=== PATIENT | female | born 1995 | race African-American/Black ===

== ENCOUNTER 2019-05-11 14:45 | Emergency (ER) | payer OTHER ==
[2019-05-11 15:35] VITALS: BP 111/61; PULSE 60; TEMP 98; BMI 20.9
[2019-05-11] MEDS ORDERED: LACTATED RINGERS SOLUTION 1000 ML INFUS.BAG IV ONE (15:40)
[2019-05-11] MEDS ORDERED: ACETAMINOPHEN 325 MG TABLET (FP) PO ONE (15:41)
--- NOTE | 2019-05-11 15:49 | PDOC ---
History of Present Illness - General Chief Complaint: Lightheaded Stated Complaint: Lightheaded Time Seen by Provider: 05/11/19 14:52 History Source: Patient Exam Limitations: Clinical Condition - History of Present Illness Initial Comments: 05/11/19 15:46 Patient with no significant past medical history present with complaint of sudden onset of lightheadedness and feeling hot while visiting the following Wednesday ED here 30 minutes ago with symptoms is been improving. Patient reported was at the bedside of her family member when she started feeling hot and had a moment of lightheadedness. Reported lightheadedness are improved but still have a mild headache. Denies nausea, vomiting, blurry vision, change in vision, chest pain, palpitation, shortness of breath. Reported LMP 2 weeks ago. Denies urinary frequency, dysuria or any urinary symptoms. Patient denies any other symptoms Is this a multiple visit Asthma Patient?: No Timing/Duration: momentarily Past History - Past Medical History Allergies/Adverse Reactions: Allergies Allergy/AdvReac Type Severity Reaction Status Date / Time No Known Allergies Allergy Verified 05/11/19 15:27 Home Medications: Ambulatory Orders NK [No Known Home Medication] 05/11/19 COPD: No - Psycho Social/Smoking Cessation Hx Smoking History: Never smoked Have you smoked in the past 12 months: No Information on smoking cessation initiated: No Hx Alcohol Use: No Drug/Substance Use Hx: No Review of Systems - Review of Systems Able to Perform ROS?: Yes Is the patient limited Turkish proficient: No Constitutional: No: Chills, Fever, Malaise HEENTM: No: Symptoms Reported, See HPI, Eye Pain, Blurred Vision, Tearing, Recent change in vision, Double Vision, Cataracts, Ear Pain, Ocular Prothesis, Ear Discharge, Nose Pain, Nose Congestion, Tinnitus, Nose Bleeding, Hearing Loss , Throat Pain, Throat Swelling, Mouth Pain, Dental Problems, Difficulty Swallowing, Mouth Swelling, Other Respiratory: No: Symptoms reported, See HPI, Cough, Orthopnea, Shortness of Breath, SOB with Exertion, SOB at Rest, Stridor, Wheezing, Productive cough, Hemoptysis, Other Cardiac (ROS): Yes: Symptoms Reported, See HPI, Lightheadedness (improved). No : Chest Pain, Edema, Irregular Heart Rate, Palpitations, Syncope, Chest Tightness, Other ABD/GI: No: Symptoms Reported, See HPI, Nausea, Vomiting, Abdominal cramping : No: Symptoms Reported, Burning, Dysuria, Discharge, Frequency, Urgency Musculoskeletal: No: Symptoms Reported Neurological: Yes: Symptoms reported, See HPI, Headache (mild heaache). No: Numbness, Paresthesia, Weakness All Other Systems: Reviewed and Negative *Physical Exam - Vital Signs Last Vital Signs Temp Pulse Resp BP Pulse Ox 98 F 60 16 111/61 100 05/11/19 14:50 05/11/19 14:50 05/11/19 14:50 05/11/19 14:50 05/11/19 14:50 - Physical Exam 05/11/19 15:49 GENERAL: Well developed, well nourished. Awake and alert. No acute distress. HEENT: Normocephalic, atraumatic. PERRLA, EOMI. No conjunctival pallor. Sclera are non-icteric. Moist mucous membranes. Oropharynx is clear. NECK: Supple. Full ROM. CARDIOVASCULAR: Regular rate and rhythm. No murmurs, rubs, or gallops. Distal pulses are 2+ and symmetric. PULMONARY: No evidence of respiratory distress. Lungs clear to auscultation bilaterally. No wheezing, rales or rhonchi. ABDOMINAL: Soft. Non-tender. Non-distended. No rebound or guarding. No organomegaly. Normoactive bowel sounds. MUSCULOSKELETAL Normal range of motion at all joints. SKIN: Warm and dry. Normal capillary refill. No rashes. No cyanosis. NEUROLOGICAL: Alert, awake, appropriate. Gait is normal without ataxia. PSYCHIATRIC: Cooperative. Good eye contact. Appropriate mood General Appearance: Yes: Nourished, Appropriately Dressed. No: Apparent Distress Medical Decision Making - Medical Decision Making 05/11/19 15:47 Patient with no significant past medical history present with complaint of sudden onset of lightheadedness and feeling hot while visiting the following Wednesday ED here 30 minutes ago with symptoms is been improving. Patient reported was at the bedside of her family member when she started feeling hot and had a moment of lightheadedness. Reported lightheadedness are improved but still have a mild headache. Denies nausea, vomiting, blurry vision, change in vision, chest pain, palpitation, shortness of breath. Reported LMP 2 weeks ago. Denies urinary frequency, dysuria or any urinary symptoms. Patient denies any other symptoms Clinical exam unremarkable with patient in no acute distress. Normal cardio and lung exam. Symptoms likely vasovagal reaction versus dehydration versus less likely anemia. CBC and chemistry lab ordered. IV hydration with lactated Ringer's 1 L ordered for hydration. Tylenol 650 mg p.o. ordered for headache. Treat based on lab results 05/11/19 16:08 Patient pending lab results and signed out to PAMELA Johnson for follow-up management Discharge - Discharge Information Problems reviewed: Yes Clinical Impression/Diagnosis: Vasovagal episode Condition: Improved - Admission No - Follow up/Referral - Patient Discharge Instructions - Post Discharge Activity
[2019-05-11] MEDS ORDERED: ACETAMINOPHEN 325 MG TABLET (FP) ONE (15:53)
[2019-05-11 16:33] LABS: BASO % 0.3 % (0-2.0); EOS % 0.2 % (0-4.5); HEMATOCRIT 41.8 % (32.4-45.2); HEMOGLOBIN 13.5 GM/dL (10.7-15.3); MCH 29.5 pg (25.7-33.7); MCHC 32.3 g/dl (32.0-36.0); MEAN CELL VOLUME 91.3 fl (80-96); MEAN PLT VOLUME 8.1 fl (7.5-11.1); MONO % 6.4 % (3.8-10.2); NEUT % 57.1 % (42.8-82.8); PLATELET COUNT 215 K/MM3 (134-434); RBC 4.58 M/mm3 (3.60-5.2); RDW 13.6 % (11.6-15.6)
[2019-05-11 16:55] LABS: ALBUMIN 3.8 g/dl (3.4-5.0); BILIRUBIN,TOTAL 0.5 mg/dL (0.2-1); BLOOD UREA NITROGEN 13.1 mg/dL (7-18); CALCIUM 9.2 mg/dL (8.5-10.1); CREATININE 0.8 mg/dL (0.55-1.3); POTASSIUM 4.5 mmol/L (3.5-5.1); TOT PROT 7.4 g/dl (6.4-8.2)
--- NOTE | 2019-05-11 17:15 | PDOC ---
*Physical Exam - Vital Signs Last Vital Signs Temp Pulse Resp BP Pulse Ox 98 F 60 16 111/61 100 05/11/19 14:50 05/11/19 14:50 05/11/19 14:50 05/11/19 14:50 05/11/19 14:50 ED Treatment Course - LABORATORY CBC & Chemistry Diagram: 05/11/19 16:00 05/11/19 16:00 - ADDITIONAL ORDERS Additional order review: Laboratory Results 05/11/19 05/11/19 16:00 16:00 Sodium 139 Potassium 4.5 Chloride 106 Carbon Dioxide 27 Anion Gap 6 L BUN 13.1 Creatinine 0.8 Est GFR (CKD-EPI)AfAm 118.76 Est GFR (CKD-EPI)NonAf 102.47 Random Glucose 95 Calcium 9.2 Total Bilirubin 0.5 AST 33 ALT 26 Alkaline Phosphatase 74 Total Protein 7.4 Albumin 3.8 Serum , Qual Negative 05/11/19 16:00 RBC 4.58 MCV 91.3 MCHC 32.3 RDW 13.6 MPV 8.1 Neutrophils % 57.1 Lymphocytes % 36.0 Monocytes % 6.4 Eosinophils % 0.2 Basophils % 0.3 - Medications Given in the ED: ED Medications Discontinued Medications Generic Name Dose Route Start Last Admin Trade Name Freq PRN Reason Stop Dose Admin Acetaminophen 650 mg 05/11/19 15:41 05/11/19 16:04 Tylenol - PO 05/11/19 15:42 650 mg ONCE ONE Administration Lactated Ringer's 1,000 ml 05/11/19 15:40 05/11/19 16:04 Lactated Ringers Solution IV 05/11/19 15:41 1,000 ml ONCE ONE Administration Medical Decision Making - Medical Decision Making Patient signed out to me by PAMELA check Mary Patient feeling better and denies any complaints Labs reviewed and unremarkable stable for dc 05/11/19 17:10 Discharge - Discharge Information Problems reviewed: Yes Clinical Impression/Diagnosis: Vasovagal episode Condition: Improved Disposition: HOME - Admission No - Additional Discharge Information Prescription Drug Monitoring Program (I-STOP) results: I-STOP not reviewed - Follow up/Referral - Patient Discharge Instructions Patient Printed Discharge Instructions: DI for Dizziness-Nonvertigo Additional Instructions: Thank you for choosing [facility]. It was a pleasure taking care of you. Your labs were unremarkable Please continue follow-up with your regular doctor in 2 to 3 days Return to the Emergency Department if your symptoms worsen or persist or have other concerning symptoms. - Post Discharge Activity
== END 2019-05-11 17:28 | disposition home or self-care (01) ==
LOC: JER 14:45
DX: R55 Syncope and collapse (principal)
CPT/HCPCS: 36415; 80053; 84703; 85025; 99283-25